=== PATIENT | male | born 1995 | race Caucasian/White ===

== ENCOUNTER 2016-07-22 22:11 | Emergency (ER) | payer OTHER ==
[2016-07-23] MEDS ORDERED: KETOROLAC TROMETHAMINE 60 MG/2 ML VIAL IM ONE ×2 (01:29→01:31)
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
[2016-07-23 04:03] VITALS: BP 117/77
== END 2016-07-23 03:59 | disposition home or self-care (01) ==
LOC: ER 22:11
DX: S40.022A Contusion of left upper arm, initial encounter (principal); M54.5 Low back pain; M25.532 Pain in left wrist; M25.522 Pain in left elbow; W19.XXXA Unspecified fall, initial encounter; F17.210 Nicotine dependence, cigarettes, uncomplicated; E03.9 Hypothyroidism, unspecified

== ENCOUNTER 2016-09-22 20:54 | Emergency (ER) | payer OTHER ==
[2016-09-22] MEDS ORDERED: MORPHINE SULFATE 4 MG/ML SYRG IM ONE (21:28)
[2016-09-22] MEDS ORDERED: NORMAL SALINE 1,000 ML IV PRN (21:28)
[2016-09-22] MEDS ORDERED: MORPHINE SULFATE 4 MG/ML SYRG ONE (21:32)
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
--- OUTSIDE RECORDS SUMMARY | 2016-09-22 23:17 | XMS REPORT | Continuity of Care Document ---
:1995 Author Organization [facility] ([facility]) Address [place] [address] Phone [phone] Care Team Providers Name Role Phone BulmaroFaizan Primary Care Provider [phone] Source Comments This disclosure is being made pursuant to the Care Everywhere program, applicable federal and state laws, and may not contain all informaitonavailable regarding this patient.[facility] ([facility]) Active Allergies and Adverse Reactions No Known Allergies Current Medications Prescription Sig. Disp. Refills Start Date End Date Status Levothyroxine 50 mcg Take 50 mcg by Active Cap mouth every 48 hours. levothyroxine 75 mcg Take 75 mcg by Active tablet mouth every 48 hours. fluticasone (FLONASE) use 2 Sprays into 1 Bottle 5 05/21/2011 Active 50 mcg/Actuation nasal the nose daily. spray Indications: Chronic Non-Allergic Rhinitis Active Problems Problem Noted Date Snoring 12/11/2011 Obstructive sleep apnea 12/11/2011 Immunizations Name Dates Previously Given Next Due DTaP, unspecified 07/06/1999,05/17/1998,1996,1996, 996 Hepatitis B, unspecified 1996,1996,1996 Hib, unspecified 05/17/1998,1996,1996,1996 MMR 07/06/1999,05/17/1998 Polio, unspecified 07/06/1999,1996,1996,1996 Varicella 05/17/1998 Social History Tobacco Use Types Packs/Day Years Used Date Never Smoker Smokeless Tobacco: Never Used Alcohol Use Drinks/Week oz/Week Comments No Last Filed Vital Signs Vital Sign Reading Time Taken Blood Pressure 125/65 12/11/2011 2:02 PM CDT Pulse 85 12/11/2011 2:02 PM CDT Temperature 36.8 C (98.2 F) 12/11/2011 2:02 PM CDT Respiratory Rate - - Height 1.688 m (5' 6.46") 12/11/2011 2:02 PM CDT Weight 95.1 kg (209 lb 10.5 oz) 12/11/2011 2:02 PM CDT Body Mass Index 33.38 12/11/2011 2:02 PM CDT Oxygen Saturation - - Plan of Care Health Maintenance Due Date Last Done Comments Varicella Vaccine (2 of 2 - 2 2000 05/17/1998 Dose Childhood Series) HPV Vaccine (1 of 3 - Male 3 02/03/2007 Dose Series) Tdap Vaccine 02/03/2007 Meningococcal Vaccine (1 of 2012 1) Lipid Disorder Screening 02/03/2014 Td Vaccine 02/03/2014 07/06/1999, Additional history exists 05/17/1998, 1996 Influenza Vaccine: Seasonal 2016 (#1) Hepatitis B Vaccine Completed 1996, 1996, 1996 MMR Vaccine Completed 07/06/1999, 05/17/1998 Results from Last 3 Months Not on file
[2016-09-22 23:22] VITALS: BP 146/84
== END 2016-09-22 23:27 | disposition home or self-care (01) ==
LOC: ER 20:54
DX: M25.511 Pain in right shoulder (principal); F17.210 Nicotine dependence, cigarettes, uncomplicated; F41.9 Anxiety disorder, unspecified; V29.9XXA Motorcycle rider (driver) (passenger) injured in unspecified traffic accident, initial encounter

== ENCOUNTER 2016-11-22 02:50 | Emergency (ER) | payer BC, OTHER ==
--- NOTE | 2016-11-22 04:09 | ERNOTE ---
Date of Service: 11/22/16 Time Seen by Provider: 11/22/16 04:07 Stated Complaint: SICK FOR FEW DAYS, THINK DEHYDRATED Presenting Symptoms:: cough, runny nose, fever Source: patient Exam Limitations: no limitations Immunizations: IMMUNIZATION HX Immunizations Up to Date Yes History of Influenza Vaccine No Hx Pneumococcal Vaccination No Allergies/Adverse Reactions: Allergies amoxicillin [Amoxicillin] Adverse Reaction (Mild, Verified 11/22/16 03:07) rash around nose Home Medications: HOME MEDICATIONS Levothyroxine Sodium [Synthroid] 75 mcg PO HS 10/09/13 [Last Taken 10/08/13] Clonazepam 1 mg PO TID PRN 07/22/16 [Last Taken Unknown] Escitalopram Oxalate [Lexapro] 20 mg PO DAILY 07/22/16 [Last Taken Unknown] Ibuprofen 600 mg PO Q6H PRN 11/22/16 [Last Taken 11/21/16 22:00] - History of Present Ilness Narrative: PT HAVING COUGHING WITH SOME FEVER FOR 5 DAYS. TAKING IBUPROFEN FOR FEVER. GENERALLY WELL . DOES SMOKE . NOT AROUND ANY ONE THAT HE KNEW WAS ILL. HE HAS NOT BEEN WORKING RECENTLY HE SAYS HE IS RECOVERING FROM RIGHT AC JT. SURGERY BY A DOCTOR IN [place] FOR WHICH HE USES HYDROCODONE. . HE THINKS HE COULD BE DEHYDRATED BECAUSE HE SAYS HE HAS NOT BEEN EATING WELL AND HAS HAD STOMACH CRAMPING. HE DENIES ANY VOMITING OR DIARRHEA. SOME RUNNY NOSE AND NASAL CONGESTION. Review of Systems - Review of Systems Constitutional: Present: See HPI, recent illness, fever EYE: Present: no symptoms reported ENT: Present: nose congestion, nasal drainage Respiratory: Present: cough Cardiology: Present: no symptoms reported Gastrointestinal/Abdominal: Present: See HPI, abdominal pain, eating less. Absent: vomiting, diarrhea Genitourinary: Present: no symptoms reported Musculoskeletal: Present: See HPI, joint pain - FROM AC JT SURGERY 2 MONTHS AGO. Neurological: Present: no symptoms reported Endocrine: Present: no symptoms reported Hematologic/Lymphatic: Present: no symptoms reported Psych: Present: anxiety, depressed - CHRONIC, ON MEDS. All Other Systems: All systems neg except as marked - Patient's Past Medical History Patient History - Medical: Anxiety, Depression, Hypothyroidism Patient History - Cardiac/Respiratory: No pertinent hx Patient History - Cancer: No Hx of Cancer Patient History - Surgical Procedures: Ear Tubes, Orthopedic - AC JT SURGERY 2 MONTHS AGO. Patient History - Other: None - Social History Living Situations: home Psych History: Hx of Anxiety, Hx of Depression Smoking Status: Current every day smoker Alcohol Use: occasionally Drug Use: none - Immunizations Immunizations Up to Date: Yes Hx Pneumococcal Vaccination: No History of Influenza Vaccine: No Physical Exam - Physical Exam General Appearance: Present: wd/wn, alert, mild distress - PT HAS OCC NON PRODUCTIVE COUGH AND VSS WITH FEVER. Eye Exam: Normal inspection: bilateral, PERRL: bilateral, EOMI: bilateral Ears, Nose, Throat: Present: abnormal TM (R) - CERUMEN OBSTRUCTION, abnormal TM (L) - TM = SCARRED , PALE AND THICKENED, NOT INFLAMED OR DRAINING. , nasal congestion. Absent: pharyngeal erythema, tonsillar swelling, dry mucous membranes Neck: Present: normal inspection, nontender. Absent: lymphadenopathy (R), lymphadenopathy (L) Respiratory: Present: no respiratory distress, normal breath sounds, no accessory muscle use, chest nontender, lungs clear, other - CLEAR TO A & P Cardiovascular/Chest: Present: regular rate, rhythm, no murmur, normal peripheral pulses Gastrointestinal/Abdominal: Present: normal bowel sounds, nondistended, no organomegaly, tenderness - MILD EXAMINING LUNGS POSTERIORLY PT DEVELOPED CRAMPING IN HIS ABDOMEN UPON MOVING FROM SUPINE TO SITTING POSITION AND HE WAS TENDER TO PALPATION IN EPIGASTRIC AREA. Neurological Exam: Present: alert, oriented Skin Exam: Present: normal color, warm/dry ED Progress - Vital Signs Patient's Vital Signs:: I have reviewed the patient's vital signs. Vital Signs: Vital Signs 11/22/16 03:02 Temperature 38.3 C H Pulse Rate 124 H Respiratory 20 Rate Blood Pressure 140/85 O2 Sat by Pulse 95 Oximetry - Progress/Reassessment Chief Complaint: Upper Respiratory Symptoms Plan - Plan Plan: AFTER I EXAMINED PT I TOLD HIM I WAS GOING TO CHECK HIS LABS AND CXR SINCE HE HAS BEEN ILL FOR 5 DAYS BUT AFTER I LEFT TO ORDER THE TESTS HE CAME OUT AND SAID HE DIDN'T WANT THE TESTS AND WANTED TO LEAVE AMA. Departure - Departure Clinical Impression: Cough in adult Fever Qualifiers: Fever type: unspecified Qualified Code(s): R50.9 - Fever, unspecified URI (upper respiratory infection) Qualifiers: URI type: unspecified viral URI Qualified Code(s): J06.9 - Acute upper respiratory infection, unspecified Disposition: Against medical advice
[2016-11-22 04:10] VITALS: BP 131/85
[2016-11-22] MEDS ORDERED: ACETAMINOPHEN 325 MG TABLET PO ONE (04:10)
[2016-11-22] MEDS ORDERED: ACETAMINOPHEN 325 MG TABLET ONE (04:11)
--- OUTSIDE RECORDS SUMMARY | 2016-11-22 04:23 | XMS REPORT | Continuity of Care Document ---
:1995 Author Organization [facility] ([facility]) Address [place] [address] Phone [phone] Care Team Providers Name Role Phone BulmaroFaizan Primary Care Provider [phone] Source Comments This disclosure is being made pursuant to the Care Everywhere program, applicable federal and state laws, and may not contain all informaitonavailable regarding this patient.[facility] ([facility]) Active Allergies and Adverse Reactions No [...]
== END 2016-11-22 04:27 | disposition left against medical advice (07) ==
LOC: ER 02:50
DX: R05 Cough (principal); R50.9 Fever, unspecified; J06.9 Acute upper respiratory infection, unspecified; F17.200 Nicotine dependence, unspecified, uncomplicated; Z53.29 Procedure and treatment not carried out because of patient's decision for other reasons

== ENCOUNTER 2016-11-28 20:34 | Emergency (ER) | payer BC ==
[2016-11-28] MEDS ORDERED: ALBUTEROL SULFATE 2.5 MG/3 ML VIAL.NEB IH ONE (20:59)
[2016-11-28] MEDS ORDERED: ALBUTEROL SULFATE 2.5 MG/0.5 ML VIAL.NEB IH ONE (21:00)
[2016-11-28] MEDS ORDERED: CODEINE PHOSPHATE/GUAIFENESIN 5 ML UDC PO ONE (21:19)
[2016-11-28] MEDS ORDERED: CODEINE PHOSPHATE/GUAIFENESIN 5 ML UDC ONE (21:22)
--- NOTE | 2016-11-28 21:23 | ERNOTE ---
Time Seen by Provider: 11/28/16 20:50 Stated Complaint: FEVER,VOMITTING,COUGH Presenting Symptoms:: cough Source: patient, family Exam Limitations: no limitations Immunizations: IMMUNIZATION HX Immunizations Up to Date Yes History of Influenza Vaccine No Hx Pneumococcal Vaccination No Allergies/Adverse Reactions: Allergies amoxicillin [Amoxicillin] Adverse Reaction (Mild, Verified 11/22/16 03:07) rash around nose Home Medications: HOME MEDICATIONS Levothyroxine Sodium [Synthroid] 75 mcg PO HS 10/09/13 [Last Taken 10/08/13] Clonazepam 1 mg PO TID PRN 07/22/16 [Last Taken Unknown] Escitalopram Oxalate [Lexapro] 20 mg PO DAILY 07/22/16 [Last Taken Unknown] Ibuprofen 600 mg PO Q6H PRN 11/22/16 [Last Taken 11/21/16 22:00] Albuterol Sulfate [Proair Hfa] 2 puff IH Q4H PRN #1 inhaler 11/28/16 [Last Taken Unknown] Codeine Phosphate/Guaifenesin [Codeine-Guaifen 10-100 mg/5 ml] 10 ml PO Q4H PRN #120 liquid 11/28/16 [Last Taken Unknown] - History of Present Ilness Narrative: Patient has had a cough for at least a week. Initially he had a fever and yellow sputum, both of which have resolved. Two days ago he had vomiting and diarrhea, which also have resolved. He tolerated taco [place] today. He still feels fatigues and has a persistent cough, his upper abdominal muscle hurt from coughing Review of Systems - Review of Systems Constitutional: Present: recent illness, fever ENT: Present: ear pain, nose congestion, nasal drainage. Absent: sore throat Respiratory: Present: See HPI, cough. Absent: shortness of breath Cardiology: Absent: chest pain Gastrointestinal/Abdominal: Present: See HPI Genitourinary: Present: no symptoms reported Musculoskeletal: Present: no symptoms reported Skin: Present: no symptoms reported Neurological: Present: headache - intermittent, not currently - Patient's Past Medical History Patient History - Medical: Anxiety, Depression, Hypothyroidism Patient History - Cardiac/Respiratory: No pertinent hx Patient History - Cancer: No Hx of Cancer Patient History - Surgical Procedures: Ear Tubes, Orthopedic Patient History - Other: None - Social History Living Situations: home Psych History: Hx of Anxiety, Hx of Depression Smoking Status: Current every day smoker Cigarettes Packs Per Day: 0.3 Have you smoked in the past 12 months: Yes Do you dip or chew tobacco: No Alcohol Use: occasionally Drug Use: none - Immunizations Immunizations Up to Date: Yes Hx Pneumococcal Vaccination: No History of Influenza Vaccine: No Physical Exam - Physical Exam General Appearance: Present: wd/wn, alert, no apparent distress Eye Exam: Normal inspection: bilateral, PERRL: bilateral Ears, Nose, Throat: Present: nasal congestion, normal pharynx Neck: Present: normal inspection. Absent: lymphadenopathy (R), lymphadenopathy (L) Respiratory: Present: no respiratory distress, normal breath sounds, no accessory muscle use, lungs clear Cardiovascular/Chest: Present: regular rate, rhythm, no murmur Gastrointestinal/Abdominal: Present: normal bowel sounds, nondistended, soft, tenderness - muscle tenderness upper abdomen Neurological Exam: Present: alert, oriented, normal mood/affect Skin Exam: Present: normal color, warm/dry ED Progress - Vital Signs Patient's Vital Signs:: I have reviewed the patient's vital signs. Vital Signs: Vital Signs 11/28/16 20:39 Temperature 37.3 C Pulse Rate 114 H Respiratory 16 Rate Blood Pressure 141/53 O2 Sat by Pulse 96 Oximetry - Progress/Reassessment Chief Complaint: Cough Progress Note-Subjective: 11/28/16 21:19 feeling better after neb treatment Departure - Departure Clinical Impression: Bronchitis Disposition: Home self-care Condition: Good Instructions: Acute Bronchitis, [id number] Additional Instructions: follow up with your doctor after the weekend Prescriptions: Albuterol Sulfate [Proair Hfa] 2 puff IH Q4H PRN #1 inhaler PRN Reason: Shortness Of Breath Codeine Phosphate/Guaifenesin [Codeine-Guaifen 10-100 mg/5 ml] 10 ml PO Q4H PRN #120 liquid PRN Reason: Cough
--- OUTSIDE RECORDS SUMMARY | 2016-11-28 21:24 | XMS REPORT | Continuity of Care Document ---
:1995 Author Organization [facility] ([facility]) Address [address] [address] Phone [phone] Care Team Providers Name Role Phone BulmaroFaizan Primary Care Provider [phone] Source Comments This disclosure is being made pursuant to the Care Everywhere program, applicable federal and state laws, and may not contain all informaitonavailable regarding this patient.[facility] ([facility]) Active Allergies and Adverse Reactions No [...]
[2016-11-28 21:31] VITALS: BP 138/60
== END 2016-11-28 21:25 | disposition home or self-care (01) ==
LOC: ER 20:34
DX: J20.9 Acute bronchitis, unspecified (principal); Z72.0 Tobacco use; F41.8 Other specified anxiety disorders; E03.9 Hypothyroidism, unspecified

== ENCOUNTER 2017-05-27 04:42 | Emergency (ER) | payer BC ==
--- NOTE | 2017-05-27 05:10 | ERNOTE ---
ENT HPI Presenting Symptoms: eye pain Time Seen by Provider: 05/27/17 05:01 Source: patient Exam Limitations: no limitations - Immun/Allergies/Home Medications Immunizations: IMMUNIZATION HX Immunizations Up to Date Yes History of Influenza Vaccine No Hx Pneumococcal Vaccination No Allergies/Adverse Reactions: Allergies Allergy/AdvReac Type Severity Reaction Status Date / Time amoxicillin [Amoxicillin] AdvReac Mild rash Verified 05/27/17 04:54 around nose Home Medications: HOME MEDICATIONS Levothyroxine Sodium [Synthroid] 75 mcg PO HS 10/09/13 [Last Taken 10/08/13] Ibuprofen 600 mg PO Q6H PRN 11/22/16 [Last Taken 11/21/16 22:00] - History of Present Illness Narrative: eye pain and watering, redness after welding yesterday. Severity: Present: moderate ENT Location: Present: eye (R), eye (L) Prearrival Treatment: Present: over the counter meds Modifying Factors - Improves: Reports: nothing Review of Systems - Review of Systems Constitutional: Absent: recent illness EYE: Present: see HPI ENT: Present: no symptoms reported Respiratory: Present: no symptoms reported Cardiology: Present: no symptoms reported Gastrointestinal/Abdominal: Present: no symptoms reported Genitourinary: Present: no symptoms reported Musculoskeletal: Present: no symptoms reported Skin: Present: no symptoms reported Neurological: Present: no symptoms reported Endocrine: Present: no symptoms reported Hematologic/Lymphatic: Present: no symptoms reported Psych: Present: no symptoms reported - Patient's Past Medical History Patient History - Medical: Anxiety, Depression, Hypothyroidism Patient History - Cardiac/Respiratory: No pertinent hx Patient History - Cancer: No Hx of Cancer Patient History - Surgical Procedures: Ear Tubes, Orthopedic Patient History - Other: None - Social History Living Situations: other Psych History: Hx of Anxiety, Hx of Depression Smoking Status: Current every day smoker Have you smoked in the past 12 months: Yes Do you dip or chew tobacco: No Alcohol Use: occasionally Drug Use: none - Immunizations Immunizations Up to Date: Yes Hx Pneumococcal Vaccination: No History of Influenza Vaccine: No Physical Exam - Physical Exam General Appearance: Present: wd/wn, alert, mild distress Head Exam: Present: normal inspection, no evidence of injury Eye Exam: Sclera injection: bilateral, Eye drainage: bilateral - clear, Photophobia: bilateral Ears, Nose, Throat: Present: normal ENT inspection Neck: Present: normal inspection, nontender Respiratory: Present: no respiratory distress, no accessory muscle use Extremity Exam: Present: normal inspection, normal range of motion Neurological Exam: Present: alert, oriented, no motor/sensory deficits Skin Exam: Present: normal color, warm/dry Lymphatic Exam: Present: no adenopathy ED Progress - Vital Signs Vital Signs: Vital Signs 05/27/17 04:48 Temperature 36.9 C Pulse Rate 94 Respiratory 16 Rate Blood Pressure 137/97 O2 Sat by Pulse 93 Oximetry - Progress/Reassessment Chief Complaint: Eye Injury/Trauma Departure Clinical Impression: Conjunctivitis Qualifiers: Conjunctivitis type: acute Acute conjunctivitis type: unspecified Laterality: bilateral Qualified Code(s): H10.33 - Unspecified acute conjunctivitis, bilateral - Departure Disposition: Home self-care Condition: Good Instructions: Allergic Conjunctivitis, [id number] Additional Instructions: use eye drops in both eyes four times a day for 3-5 days. If your eyes are not improving by then see an eye doctor.
[2017-05-27] MEDS ORDERED: KETOROLAC TROMETHAMINE EACHEYE SCH (05:15)
[2017-05-27 05:43] VITALS: BP 133/89
== END 2017-05-27 05:39 | disposition home or self-care (01) ==
LOC: ER 04:42
DX: H10.33 Unspecified acute conjunctivitis, bilateral (principal); F17.200 Nicotine dependence, unspecified, uncomplicated

== ENCOUNTER 2017-05-31 13:58 | Emergency (ER) | payer BC ==
[2017-05-31] MEDS ORDERED: DIPHTH,PERTUSS(ACELL),TET VAC 0.5 ML VIAL IM ONE ×2 (14:17→14:20)
[2017-05-31] MEDS ORDERED: KETOROLAC TROMETHAMINE 60 MG/2 ML VIAL IM ONE ×2 (14:29→14:33)
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
[2017-05-31 14:41] LABS: Hematocrit 47.2 % (42.0-52.0); Hemoglobin 16.6 gm/dL (13.5-18.0); Mean Cell Volume 84.1 fl (78-100); Mean Corpuscular Hemoglobin 29.6 pg (27-31); Mean Corpuscular Hgb Conc 35.2 g/dl (32-36); Mean Platelet Volume 10.9 fl (6.0-9.5); Neutrophil # 7.3 K/mm3 (1.3-6.0); Neutrophil % 67.8 % (42-75.0); Platelet Count 222 K/mm3 (150-450); Red Blood Count 5.61 M/mm3 (4.7-6.0); Red Cell Distribution Width 12.3 % (11.5-14.0); White Blood Count 10.8 K/mm3 (4.0-10.5)
[2017-05-31 14:53] LABS: Albumin * 4.3 gm/dl (3.4-5.0); BUN/Creatinine Ratio 10.3 (9.0-21.6); Bilirubin, Total 0.7 mg/dL (0.0-1.1); Ca. Corrected For Albumin 8.6 mg/dL (8.4-10.2); Calcium * 9.2 mg/dL (7.9-10.9); Carbon Dioxide 27.4 mmol/L (24-32.6); Potassium 4.4 mmol/L (3.4-4.6); Total Protein 7.6 gm/dL (6.2-8.2)
[2017-05-31] MEDS ORDERED: HYDROcodone/ACETAMINOPHEN 1 EACH TABLET PO ONE (15:29)
[2017-05-31] MEDS ORDERED: HYDROcodone/ACETAMINOPHEN 1 EACH TABLET ONE (15:38)
[2017-05-31 15:46] VITALS: BP 133/79
== END 2017-05-31 15:55 | disposition home or self-care (01) ==
LOC: ER 13:58
DX: L03.113 Cellulitis of right upper limb (principal); F17.200 Nicotine dependence, unspecified, uncomplicated; E03.9 Hypothyroidism, unspecified